=== PATIENT | female | born 1950 | race Caucasian/White ===

== ENCOUNTER 2017-10-09 10:18 | Emergency (ER) | payer OTHER, MEDICARE ==
[~2017-10-09] VITALS: Ht 157.5 cm; Wt 72.6 kg
--- NOTE | 2017-10-09 12:19 | ED INFLUENZA/URI COMPLAINT ---
History of Present Illness General Chief Complaint: Upper Respiratory Sx/Fever Stated Complaint: BAD COUGH Source: patient, old records Exam Limitations: no limitations Vital Signs & Intake/Output Vital Signs & Intake/Output ED Intake and Output 10/10 0000 10/09 1200 Intake Total Output Total Balance Patient 72.575 kg Weight Weight Reported by Patient Measurement Method Allergies Coded Allergies: NO KNOWN ALLERGIES (10/09/17) Reconcile Medications Azithromycin 250 MG TABLET 1 DP PO AD COPD 2 the first day followed by 1 for days 2-5 Benzonatate (Tessalon Perle) 100 MG CAPSULE 1 CAP PO TID COPD Prednisone 20 MG TABLET 1 TAB PO BID COPD Triage Note: TRIAGE: 67 Y/O FEMALE PRESENTS C/O COUGH X3 MONTHS - REPORTS PCP DIAGNOSED HER WITH ASTHMATIC BRONCHITIS. ROOM AIR SPO2 97% Triage Nurses Notes Reviewed? yes HPI: 67F PMH COPD, heavy smoker presenting with 3 days of worsening cough and shortness of breath. Has had multiple episodes of bronchitis over the past few months, given Albuterol and Symbicort by her PCP 3 days ago. Reports significant dry cough, worse with deep inspiration. Denies fever, chills, nausea, vomiting, chest pain, dyspnea on exertion, abdominal pain, diarrhea, dysuria. She is not hypoxic, able to speak in complete sentences, and is not altered. She has good home support. Past History Travel History Traveled to [place] past 21 day No Medical History Any Pertinent Medical History? see below for history Influenza Vaccine: 08/01/13 Surgical History Surgical History: non-contributory Psychosocial History What is your primary language Latvian Tobacco Use: Never used ETOH Use: denies use Illicit Drug Use: denies illicit drug use Family History Hx Contributory? No Review of Systems Review of Systems Constitutional: Reports: no symptoms. EENTM: Reports: no symptoms. Respiratory: Reports: see HPI. Cardiovascular: Reports: no symptoms. GI: Reports: no symptoms. Genitourinary: Reports: no symptoms. Musculoskeletal: Reports: no symptoms. Skin: Reports: no symptoms. Neurological/Psychological: Reports: no symptoms. Hematologic/Endocrine: Reports: no symptoms. Immunologic/Allergic: Reports: no symptoms. All Other Systems: Reviewed and Negative Physical Exam Physical Exam General Appearance: well developed/nourished, mild distress Head: atraumatic, normal appearance Eyes: Bilateral: normal appearance. Ears, Nose, Throat: normal ENT inspection, moist mucous membrane Neck: normal inspection, supple Respiratory: chest non-tender, no respiratory distress, LLL wheezing Cardiovascular: regular rate/rhythm Gastrointestinal: soft, non-tender Back: normal inspection, normal range of motion Extremities: normal inspection Neurologic/Psych: awake, alert, oriented x 3, normal mood/affect Skin: intact, normal color, warm/dry Core Measures Sepsis Present: No Sepsis Focused Exam Completed? No Progress Differential Diagnosis: influenza, meningitis, neutropenia, otitis, pneumonia, pharyngitis, sinusitis Plan of Care: Orders Procedure Date/time Status RAPID VIRAL INFLUENZA A 10/09 1229 Active Microbiology 10/09 1229 NASOPHARYN: Influenza Virus A & B Rapid Smear - ORD Had CXR 2 days ago that was normal. No evidence of pneumonia clinically. Will give Solumedrol and nebulizer treatment and discharge home. Initial ED EKG: normal intervals Departure Departure Disposition: HOME OR SELF CARE Condition: Stable Clinical Impression Primary Impression: COPD with acute exacerbation Referrals: Myriam Jacobo MD (PCP/Family) Additional Instructions: Follow up with your PCP. If you experience fever, chills, changes in sputum, difficulty breathing or speak, worsening or new symptoms, return to emergency room. Departure Forms: Customer Survey General Discharge Information Prescriptions: Current Visit Scripts Prednisone 1 TAB PO BID #10 TAB Azithromycin 1 DP PO AD #6 TAB 2 the first day followed by 1 for days 2-5 Benzonatate (Tessalon Perle) 1 CAP PO TID #30 CAP
[2017-10-09 12:37] VITALS: BP 146/78
[2017-10-09] MEDS ORDERED: AZITHROMYCIN250 M1 PO (12:57)
[2017-10-09] MEDS ORDERED: TESSALON PERLE100 M1 PO (12:57)
[2017-10-09] MEDS ORDERED: PREDNISONE20 M1 PO (12:57)
== END 2017-10-09 13:43 ==
LOC: ERH 10:18
DX: J44.1 Chronic obstructive pulmonary disease with (acute) exacerbation (principal)
CPT/HCPCS: 1263; 87804; 87804-59; 96372; J2930